=== PATIENT | female | born 1965 | race Two or more races ===

== ENCOUNTER 2023-11-19 17:55 | Emergency (ER) | payer OTHER ==
[~2023-11-19] VITALS: Ht 160 cm; Wt 78.0 kg
[2023-11-19] MEDS ORDERED: ATACAND4 MG (18:09)
[2023-11-19] MEDS ORDERED: ALOPURINOL (18:09)
[2023-11-19] MEDS ORDERED: TRICOR48 MG PO (18:10)
[2023-11-19] MEDS ORDERED: TRENTAL (18:10)
[2023-11-19] MEDS ORDERED: CARDURA XL4 MG (18:12)
[2023-11-19] MEDS ORDERED: CRESTOR10 MG (18:12)
[2023-11-19] MEDS ORDERED: PEPCID AC10 MG (18:12)
[2023-11-19] MEDS ORDERED: FAMOTIDINE/PF 20 MG in 0.9 % SODIUM CHLORIDE 8 ML IV PUSH STA (18:56)
[2023-11-19] MEDS ORDERED: 0.9 % SODIUM CHLORIDE 1,000 ML IV SCH (19:00)
[2023-11-19] MEDS ORDERED: KETOROLAC TROMETHAMINE 30 MG VIAL IV ONE (19:00)
[2023-11-19 20:14] LABS: HEMATOCRIT 36.5 % (36.0-45.00); HEMOGLOBIN 12.5 g/dL (12.0-15.00); MEAN CELL VOLUME 86.4 fL (80.00-100.00); MEAN CORPUSCULAR HEMOGLOBIN 29.6 pg (27.00-32.0); MEAN CORPUSCULAR HGB CONC 34.3 g/dl (32.0-36.0); PLATELET COUNT 206 K/uL (150-450); RED BLOOD COUNT 4.23 M/uL (4.00-6.00); RED CELL DISTRIBUTION WIDTH 13.6 % (11.5-14.5)
[2023-11-19 20:34] LABS: ALBUMIN 3.1 gm/dL (3.4-5.0); BILIRUBIN TOTAL 0.24 mg/dL (0.3-1.2); CALCIUM 9.2 mg/dL (8.5-10.1); CREATININE SERUM 2.44 mg/dL (0.55-1.02); GFR 20.34; GLOBULINA 3.7 G/DL (2.4-3.5); POTASSIUM 4.13 mEq/L (3.5-5.1); TOTAL PROTEIN 6.8 gm/dL (6.4-8.2)
[2023-11-19] MEDS ORDERED: LEVSIN/SL0.125 MG SL (21:06)
[2023-11-19] MEDS ORDERED: PEPCID40 MG PO (21:06)
[2023-11-19] MEDS ORDERED: METRONIDAZOLE500 MG PO (21:06)
[2023-11-19] MEDS ORDERED: INTESTINEX680 M1 PO (21:06)
[2023-11-19] MEDS ORDERED: CIPRO500 MG PO (21:06)
[2023-11-19] MEDS ORDERED: PIPERACILLIN/TAZOBACTAM SODIUM 3.375 GM VIAL IV ONE (21:15)
== END 2023-11-19 22:00 | disposition home or self-care (01) ==
LOC: ER 17:55
PROVIDERS: General Practice
DX: K57.32 Diverticulitis of large intestine without perforation or abscess without bleeding (principal); I10 Essential (primary) hypertension